=== PATIENT | female | born 1975 | race Two or more races ===

== ENCOUNTER 2024-09-15 08:27 | Emergency (ER) | payer OTHER, MEDICAID ==
[~2024-09-15] VITALS: Ht 157.5 cm; Wt 77.6 kg
[2024-09-15 09:47] VITALS: BP 154/86; PULSE 84; RESP 18; TEMP 98.5; O2SAT 99
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
--- NOTE | 2024-09-15 10:43 | DVH ---
XY L FOOT 3 VIEW XRAY, INDICATION: Pain to the great toe. r/o fracture TECHNICAL DATA: Frontal, oblique and lateral views were obtained of the left foot. COMPARISON: None FINDINGS: No fracture is identified. Joint spaces are maintained. Alignment is anatomic. The hallux sesamoids a ppear normal. Soft tissues are within normal limits. IMPRESSION: No acute fracture or dislocation of the left foot.
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
[2024-09-15] MEDS ORDERED: IBUP-1454 PO (11:11)
--- NOTE | 2024-09-17 14:43 | ECG ---
[facility] Test Date: 2024-09-15 Test Time: 08:32:06 Pat Name: SUSAN GUSMAN Department: ED Room: Gender: F Cardiopulmonary Technologist Chief: BEV : 1975 Requested By: JENNY CAZARES Order Number: [id number] Reading MD: Junior Diaz Measurements Intervals Froid Rate: 81 P: 38 DC: 156 QRS: -12 QRSD: 100 T: 20 QT: 374 QTc: 434 Interpretive Statements Sinus rhythm Electronically Signed On 09-22-2024 20:23:19 PDT by Junior Diaz Please click the below link to view image of tracing.
== END 2024-09-15 11:16 | disposition home or self-care (01) ==
LOC: EDBD 08:27 → ER 08:27
DX: M79.675 Pain in left toe(s) (principal); R07.89 Other chest pain; Z79.1 Long term (current) use of non-steroidal anti-inflammatories (NSAID); M19.90 Unspecified osteoarthritis, unspecified site; V89.2XXA Person injured in unspecified motor-vehicle accident, traffic, initial encounter; Y93.89 Activity, other specified; Y92.488 Other paved roadways as the place of occurrence of the external cause; Y99.8 Other external cause status
CPT/HCPCS: 71101; 73630; 93005